=== PATIENT | male | born 1945 | race African-American/Black ===

== ENCOUNTER 2016-11-21 18:19 | Inpatient (IN) | payer OTHER ==
[~2016-11-21] VITALS: Ht 175.3 cm; Wt 82.6 kg
[~2016-11-21 18:19] MED LIST: AMLO5TAB88; ATOR40TA70; FOLIC ACID; MELO-57; METO25TA6; OMEP20CA10
[2016-11-21] MEDS ORDERED: METHYLPREDNISOLONE SOD SUCC 125 MG/2 ML VIAL IV STA (18:23)
[2016-11-21] MEDS ORDERED: IPRATROPIUM BROMIDE (0.02%) 0.5MG/2.5ML NEB HHN STA (18:23)
[2016-11-21] MEDS ORDERED: ALBUTEROL (0.083%) 2.5MG/3ML NEB HHN STA (18:23)
[2016-11-21] MEDS ORDERED: FUROSEMIDE 40MG/4ML VIAL IV STA (18:23)
[2016-11-21 18:48] LABS: BASOPHILS % 0.4 % (0.0-2.0); EOSINOPHILS % 1.4 % (0.0-5.0); HEMATOCRIT. 49.7 % (42.0-52.0); HEMOGLOBIN. 16.1 g/dL (14.0-18.0); LYMPHOCYTES % 32.3 % (20.0-50.0); MEAN CORPUSCULAR HEMOGLOBIN 30.5 pg (28.0-32.0); MEAN CORPUSCULAR HGB CONC 32.4 g/dL (31.0-37.0); MEAN CORPUSCULAR VOLUME 94.3 fL (80.0-94.0); MEAN PLATELET VOLUME 9.3 fl (7.4-10.4); MONOCYTES % 9.3 % (2.0-8.0); NEUTROPHILS % 56.6 % (40.0-76.0); PLATELET 251 x1000/uL (130-400); RED BLOOD CELL COUNT 5.27 mill/uL (4.7-6.1); RED CELL DISTRIBUTION WIDTH 14.7 % (11.6-14.6); WHITE BLOOD COUNT 16.7 x1000/uL (4.5-11.0)
[2016-11-21 18:53] LABS: BG BILEVEL POS AIRWAY PRESSURE 15/5; BG CARBOXYHEMOGLOBIN 0.1 % (0.5-1.5); BG FRACTION INSPIRED OXYGEN 75; BG HCO3 ACT 19.8 mmol/L (22.0-26.0); BG METHEMOGLOBIN 0.2 % (0.0-1.5); BG OXYHEMOGLOBIN 85.7 % (94.0-97.0); BG PCO2 36.7 mmHg (35.0-45.0); BG PO2 57.4 mmHg (75.0-100.0); BG SAMPLE SITE RIGHT RADIAL; BG TOTAL HEMOGLOBIN 16.8 g/dL (12.0-18.0); BG VENT MODE MASK - BIPAP
[2016-11-21 18:54] LABS: INR 1.2; PARTIAL THROMBOPLASTIN TIME 28.7 sec (24.0-34.0); PROTHROMBIN TIME 12.8 sec
[2016-11-21 19:03] LABS: ALANINE AMINOTRANSFERASE 82 IU/L (13-61); ALBUMIN 2.8 g/dL (3.4-5.0); ANION GAP 20; CALCIUM 9.4 mg/dL (8.5-10.1); CARBON DIOXIDE 23 mEq/L (21-32); CHLORIDE 99 mEq/L (98-107); INDEX HEMOLYSI 1 (1-3); INDEX ICTERIC 1 (1-4); INDEX LIPEMIC 1 (1-3); LIPASE 226 IU/L (73-393); NT PRO B-TYPE NATRIURETIC PEP 67 pg/mL (5-125); TROPONIN I < 0.02 ng/mL (0.00-0.04); UREA NITROGEN BLOOD 28 mg/dL (7-21); eGFR > 60 mL/min (>60)
[2016-11-21 19:04] LABS: LACTIC ACID 6.5 mmol/L (0.4-2.0)
[2016-11-21] MEDS ORDERED: SODIUM CHLORIDE 0.9% 2,500 ML IV NR (19:15)
[2016-11-21] MEDS ORDERED: VANCOMYCIN 1 G PREMIX 200 ML IV NR (19:15)
[2016-11-21] MEDS ORDERED: PIPERACILLIN SODIUM/TAZOBACTAM 4.5 G in DEXT 5% WATER 100 ML IV NR (19:35)
[2016-11-21] MEDS ORDERED: DIPHENHYDRAMINE 50MG/ML VIAL IV PRN (22:30)
[2016-11-21] MEDS ORDERED: ONDANSETRON HCL 4MG/2ML VIAL IV PRN (22:30)
[2016-11-21] MEDS ORDERED: IPRATROPIUM/ALBUTEROL 0.5-3(2.5)MG/3ML NEB INH PRN (22:30)
[2016-11-21] MEDS ORDERED: DEXTROSE 50% WATER 50ML SYRINGE IV PRN (22:30)
[2016-11-21] MEDS ORDERED: CLONIDINE 0.1MG TABLET PO PRN (22:30)
[2016-11-21] MEDS ORDERED: PROMETHAZINE/DEXTROMETHORPHAN 6.25-15MG/5ML BOTTLE 120ML PO PRN (22:30)
[2016-11-21] MEDS ORDERED: MAGNESIUM/ALUMINUM HYDROXIDE/SIMETHICONE 30ML UDC PO PRN (22:30)
[2016-11-21] MEDS ORDERED: ACETAMINOPHEN 325MG TABLET PO PRN (22:30)
[2016-11-21] MEDS ORDERED: POTASSIUM CHLORIDE 20MEQ TABLET SR PO NR (23:30)
[2016-11-21] MEDS ORDERED: MAGNESIUM 2 G PREMIX 50 ML IV PRN (23:30)
[2016-11-21] MEDS ORDERED: LEVOFLOXACIN 500MG PREMIX 100 ML IV SCH (23:45)
[2016-11-21 23:50] LABS: MAGNESIUM 3.2 mg/dL (1.8-2.4)
[2016-11-22] VITALS (13 sets, daily range): BP systolic 103–129; BP diastolic 0–85
[2016-11-22] MEDS ORDERED: POTASSIUM CHLORIDE 20MEQ TABLET SR PO NR (03:12)
[2016-11-22] MEDS ORDERED: IPRATROPIUM/ALBUTEROL 0.5-3(2.5)MG/3ML NEB HHN SCH (04:00)
[2016-11-22] MEDS ORDERED: METHYLPREDNISOLONE SOD SUCC 125 MG/2 ML VIAL IV SCH (06:00)
[2016-11-22] MEDS ORDERED: LEVOFLOXACIN 500MG PREMIX 100 ML IV SCH (06:00)
[2016-11-22] MEDS: SODIUM CHLORIDE 0.9% INJ 3ML FLUSH IVF SCH ×2 (06:20→14:04)
[2016-11-22] MEDS ORDERED: PANTOPRAZOLE 40MG DR TABLET PO SCH (07:30)
[2016-11-22] MEDS: BLOOD SUGAR DIAGNOSTIC STRIP TEST SCH ×3 (07:30→17:30)
[2016-11-22] MEDS ORDERED: ENOXAPARIN 40MG/0.4ML SYR SUBCUT SCH (09:00)
[2016-11-22] MEDS ORDERED: GUAIFENESIN 600MG ER TABLET PO SCH (09:00)
[2016-11-22] MEDS: INSULIN LISPRO 100 UNITS/ML SUBCUT SCH ×3 (10:00→19:10)
[2016-11-22] MEDS ORDERED: THIAMINE HCL 100MG TABLET PO SCH (11:40)
[2016-11-22] MEDS ORDERED: FOLIC ACID 1MG TABLET PO SCH (11:40)
[2016-11-22] MEDS ORDERED: MULTIVITAMINS,THER W-MINERALS TABLET PO SCH (11:40)
[2016-11-22 12:19] LABS: HEMATOCRIT. 46.7 % (42.0-52.0); HEMOGLOBIN. 15.6 g/dL (14.0-18.0); LYMPHOCYTES % 8.4 % (20.0-50.0); MEAN CORPUSCULAR HEMOGLOBIN 30.7 pg (28.0-32.0); MEAN CORPUSCULAR HGB CONC 33.4 g/dL (31.0-37.0); MEAN CORPUSCULAR VOLUME 92.1 fL (80.0-94.0); MEAN PLATELET VOLUME 9.3 fl (7.4-10.4); MONOCYTES % 4.8 % (2.0-8.0); NEUTROPHILS % 86.8 % (40.0-76.0); PLATELET 188 x1000/uL (130-400); RED BLOOD CELL COUNT 5.08 mill/uL (4.7-6.1); RED CELL DISTRIBUTION WIDTH 14.2 % (11.6-14.6); WHITE BLOOD COUNT 10.7 x1000/uL (4.5-11.0)
[2016-11-22 12:33] LABS: ANION GAP 14; CALCIUM 8.8 mg/dL (8.5-10.1); CARBON DIOXIDE 26 mEq/L (21-32); CHLORIDE 105 mEq/L (98-107); INDEX HEMOLYSI 2 (1-3); INDEX ICTERIC 1 (1-4); INDEX LIPEMIC 1 (1-3); UREA NITROGEN BLOOD 29 mg/dL (7-21); eGFR > 60 mL/min (>60)
[2016-11-22] MEDS ORDERED: PIPERACILLIN SODIUM/TAZOBACTAM 4.5 G in DEXT 5% WATER 100 ML IV SCH (13:00)
[2016-11-22] MEDS: IPRATROPIUM/ALBUTEROL 0.5-3(2.5)MG/3ML NEB HHN SCH ×2 (13:19→20:00)
[2016-11-22] MEDS ORDERED: SODIUM POLYSTYRENE SULFONATE 15 G/60 ML BOT PO NR (14:30)
[2016-11-22] MEDS ORDERED: METHYLPREDNISOLONE SOD SUCC 40 MG/ML VIAL IV SCH (18:00)
== END 2016-11-22 20:50 | disposition short-term general hospital (02) | DRG 871 ==
LOC: ER 18:19 → 5EST 21:21
PROVIDERS: ADMIT Internal Medicine; ATTEND Internal Medicine
PROC: 5A09357 Assistance with Respiratory Ventilation, Less than 24 Consecutive Hours, Continuous Positive Airway Pressure (ICD-10-PCS; principal; 2016-11-21)
DX: A41.9 Sepsis, unspecified organism (principal); J69.0 Pneumonitis due to inhalation of food and vomit; J96.01 Acute respiratory failure with hypoxia; J44.1 Chronic obstructive pulmonary disease with (acute) exacerbation; I69.951 Hemiplegia and hemiparesis following unspecified cerebrovascular disease affecting right dominant side; E11.9 Type 2 diabetes mellitus without complications; E87.5 Hyperkalemia; F10.10 Alcohol abuse, uncomplicated; I11.0 Hypertensive heart disease with heart failure; I50.9 Heart failure, unspecified; N40.0 Benign prostatic hyperplasia without lower urinary tract symptoms; R47.02 Dysphasia; Z79.899 Other long term (current) drug therapy
CPT/HCPCS: 36415; 36600; 71010; 80048; 80053; 82375; 82805; 82962; 83036; 83605; 83690; 83735; 83880; 84484; 85025; 85610; 85730; 87040; 92610; 93005; 93306; 94640; 94660; 96365; 96366; 96368; 96375; 97162; 99291; J1650; J1815; J1940; J1956; J2543; J2920; J2930; J3370; J7040; J7050; J7060; J7611; J7620

== ENCOUNTER 2016-11-24 21:39 | Emergency (ER) | payer OTHER ==
[~2016-11-24] VITALS: Ht 182.9 cm; Wt 90.0 kg
[~2016-11-24 21:39] MED LIST changes: +CALCIUM CHLORIDE 1GM/10ML SYR IV ONE; +EPINEPHRINE 0.1MG/ML (1:10,000) 10ML SYR ONE; +SODIUM BICARBONATE 7.5% 0.9 MEQ/ML 50ML SYR IV ONE
[2016-11-24 21:43] VITALS: BP 85/42
[2016-11-24] MEDS ORDERED: EPINEPHRINE 0.1MG/ML (1:10,000) 10ML SYR ONE (22:03)
== END 2016-11-24 22:00 | disposition expired ==
LOC: ER 21:47
DX: I46.9 Cardiac arrest, cause unspecified (principal); J44.9 Chronic obstructive pulmonary disease, unspecified; I50.9 Heart failure, unspecified; Z87.01 Personal history of pneumonia (recurrent)
CPT/HCPCS: 31500; 82962; 92950; 99285; J0171; J3490